=== PATIENT | male | born 1980 | race Caucasian/White ===

== ENCOUNTER 2021-01-03 16:07 | Emergency (ER) | payer OTHER ==
[2021-01-03 16:15] VITALS: BP 142/109
[2021-01-03 16:34] LABS: BASOPHILS % (AUTO) 0.4 %; EOSINOPHILS # (AUTO) 0.1 10^3/uL (0.0-0.7); EOSINOPHILS % (AUTO) 1.2 %; HCT - HEMATOCRIT 45.2 % (42.0-52.0); HGB - HEMOGLOBIN 15.1 g/dL (14.0-18.0); LYMPHOCYTES # (AUTO) 2.7 10^3/uL (1.5-3.5); LYMPHOCYTES % (AUTO) 34.8 %; MEAN CORPUSCULAR HEMOGLOBIN 30.8 pg (27.0-31.0); MEAN CORPUSCULAR HGB CONC 33.4 g/dL (32.0-36.0); MEAN CORPUSCULAR VOLUME 92.1 fL (80.0-94.0); MEAN PLATELET VOLUME 9.4 fL (7.4-11.4); MONOCYTES # (AUTO) 0.6 10^3/uL (0.0-1.0); MONOCYTES % (AUTO) 7.2 %; NEUTROPHILS # (AUTO) 4.4 10^3/uL (1.5-6.6); NEUTROPHILS % (AUTO) 56.1 %; PLT - PLATELET COUNT 232 10^3/uL (130-450); RED BLOOD COUNT 4.91 10^6/uL (4.70-6.10); WHITE BLOOD COUNT 7.8 x10^3/uL (4.8-10.8)
[2021-01-03 16:38] LABS: BILIRUBIN,URINE NEGATIVE (NEGATIVE); CLARITY,URINE CLEAR (CLEAR); GLUCOSE, URINE (UA) NEGATIVE (NEGATIVE); KETONES,URINE (UA) NEGATIVE (NEGATIVE); LEUKOCYTE ESTERASE, URINE NEGATIVE (NEGATIVE); NITRITE,URINE NEGATIVE (NEGATIVE); OCCULT BLOOD,URINE SMALL (NEGATIVE); PH,URINE 5.5 PH (5.0-7.5); PROTEIN,URINE NEGATIVE (NEGATIVE); UROBILINOGEN,URINE 0.2 (NORMAL) E.U./dL (NORMAL)
[2021-01-03 16:49] LABS: BACTERIA,URINE None Seen /HPF (None Seen); MUCUS,URINE Moderate Strands; RBC,URINE 0-5 /HPF (0-5); SQUAMOUS EPITHELIAL CELL,UR NONE SEEN (<= Few); WBC,URINE 0-3 /HPF (0-3)
[2021-01-03 16:49] LABS: ALBUMIN 5.1 g/dL (3.2-5.5); ALBUMIN/GLOBULIN RATIO 1.4 (1.0-2.2); BILIRUBIN,TOTAL 0.8 mg/dL (0.2-1.0); CALCIUM 9.6 mg/dL (8.5-10.3); CREATININE 0.8 mg/dL (0.6-1.2); POTASSIUM 3.9 mmol/L (3.5-5.0); TOTAL PROTEIN 8.8 g/dL (6.7-8.2)
--- NOTE | 2021-01-03 17:01 | ED Physician Documentation ---
PD HPI ABD PAIN - Stated complaint Stated Complaint: LT SIDE ABD PX - Chief complaint Chief Complaint: Abd Pain - History obtained from History obtained from: Patient - History of Present Illness Timing - onset: Last night Pain level max: 7 Pain level now: 6 Quality: Aching, Sharp, Pain Radiation: No: Chest, , Lower back, Left flank, Left shoulder, Right flank, Right shoulder, Upper back Associated symptoms: No: Fever, Nausea, Vomiting, Hematemesis, Diarrhea, Constipation, Melena, Hematochezia, Dysuria, Hematuria - Additional information Additional information: Patient is a 40-year-old male who presents to the emergency department left- sided abdominal pain since last night. [facility] for evaluation. Worse with palpation and movement. Nothing makes it better. Described as aching and sharp. Nonradiating. Does not recall any trauma. No recent illnesses. Review of Systems Ten Systems: 10 systems reviewed and negative Constitutional: denies: Fever, Chills Throat: denies: Sore throat Cardiac: denies: Chest pain / pressure Respiratory: denies: Cough GI: denies: Vomiting, Diarrhea, Hematemesis, Bloody / black stool Skin: denies: Rash Musculoskeletal: denies: Neck pain, Back pain Neurologic: denies: Headache PD PAST MEDICAL HISTORY - Past Medical History Past Medical History: No - Past Surgical History Past Surgical History: No - Present Medications Home Medications: Ambulatory Orders Medication Instructions Recorded Confirmed Amox/Clav 875/125 [Augmentin] 1 each PO Q8H #30 tablet 01/03/21 - Allergies Allergies/Adverse Reactions: Allergies Allergy/AdvReac Type Severity Reaction Status Date / Time No Known Drug Allergies Allergy Verified 01/03/21 16:11 - Living Situation Living Arrangement: reports: At home - Social History Does the pt smoke?: No Smoking Status: Never smoker PD ED PE NORMAL - Vitals Vital signs reviewed: Yes - General General: Alert and oriented X 3, No acute distress, Well developed/nourished - HEENT HEENT: Moist mucous membranes - Neck Neck: Supple, no meningeal sign - Cardiac Cardiac: RRR - Respiratory Respiratory: No respiratory distress, Clear bilaterally - Abdomen Abdomen: Soft, Non distended, Other (Tender palpation left lower quadrant. No peritoneal signs.) - Back Back: No CVA TTP - Derm Derm: Warm and dry - Extremities Extremities: No edema - Neuro Neuro: Alert and oriented X 3 - Psych Psych: Normal mood, Normal affect Results - Vitals Vitals: Vital Signs - 24 hr 01/03/21 16:11 Temperature 36.8 C Heart Rate 82 Respiratory 20 Rate Blood Pressure 142/109 H O2 Saturation 97 Oxygen O2 Source Room air - Labs Labs: Laboratory Tests 01/03/21 01/03/21 01/03/21 16:23 16:27 16:27 WBC 7.8 RBC 4.91 Hgb 15.1 Hct 45.2 MCV 92.1 MCH 30.8 MCHC 33.4 RDW 12.0 Plt Count 232 MPV 9.4 Neut # (Auto) 4.4 Lymph # (Auto) 2.7 [place] # (Auto) 0.6 Eos # (Auto) 0.1 Baso # (Auto) 0.0 Absolute Nucleated RBC 0.00 Nucleated RBC % 0.0 Sodium 138 Potassium 3.9 Chloride 102 Carbon Dioxide 27 Anion Gap 9.0 BUN 14 Creatinine 0.8 Estimated GFR (MDRD) 108 Glucose 88 Calcium 9.6 Total Bilirubin 0.8 AST 20 ALT 30 Alkaline Phosphatase 64 Total Protein 8.8 H Albumin 5.1 Globulin 3.7 Albumin/Globulin Ratio 1.4 Lipase 38 Urine Color YELLOW Urine Clarity CLEAR Urine pH 5.5 Ur Specific [place] >=1.030 H Urine Protein NEGATIVE Urine Glucose (UA) NEGATIVE Urine Ketones NEGATIVE Urine Occult Blood SMALL H Urine Nitrite NEGATIVE Urine Bilirubin NEGATIVE Urine Urobilinogen 0.2 (NORMAL) Ur Leukocyte Esterase NEGATIVE Urine RBC 0-5 Urine WBC 0-3 Ur Squamous Epith Cells NONE SEEN Urine Bacteria None Seen Urine Mucus Moderate Strands Ur Microscopic Review INDICATED Urine Culture Comments NOT INDICATED - Rads (name of study) CT abdomen pelvis Radiology: Final report received, EMP read contemporaneously, See rad report PD MEDICAL DECISION MAKING - ED course Complexity details: reviewed results, re-evaluated patient, considered differential, d/w patient ED course: 40-year-old male presents to the emergency department with what appears to be diverticulitis versus colitis. Will place on antibiotics and have him follow-up closely with his doctor for further care. Patient is well-appearing, nontoxic. Afebrile. Discussed risks and benefits of antibiotics versus watchful waiting, including the possibility of C. difficile. Patient has elected antibiotics. Patient counseled regarding signs and symptoms for which I believe and urgent re-evaluation would be necessary. Patient with good understanding of and agreement to plan and is comfortable going home at this time This document was made in part using voice recognition software. While efforts are made to proofread this document, sound alike and grammatical errors may occur. IMPRESSION: Mild fatty stranding and wall thickening can be seen involving the descending colon. Please correlate with potential infectious and inflammatory causes of colitis. No findings of perforation or abscess can be seen. There is a moderate amount of stool seen within the distal colon. Please correlate with clinical constipation. Departure - Departure Disposition: 01 Home, Self Care Clinical Impression: Colitis Condition: Good Instructions: ED Diverticulitis Follow-Up: JESSIE RESTREPO DO [Primary Care Provider] - Within 1 week Prescriptions: Amox/Clav 875/125 [Augmentin] 1 each PO Q8H #30 tablet Comments: Your prescriptions were sent to the [facility]. Please follow-up with your doctor for further care. Return for worsening pain, fevers or worsening symptoms. You should notice improvement within approximately 36 to 48 hours. Take all antibiotics until gone even if you are feeling better. Discharge Date/Time: 01/03/21 18:10
[2021-01-03] MEDS ORDERED: IOVERSOL 320 100 ML VIAL IVP ONE ×2 (17:09→17:33)
--- NOTE | 2021-01-03 17:43 | CT Report ---
PROCEDURE: Abdomen/Pelvis W INDICATIONS: LLQ abd pain CONTRAST: IV CONTRAST: Optiray 320 ml: 100 PO CONTRAST: *NO PO CONTRAST TECHNIQUE: After the administration of IV contrast, 5 mm thick sections acquired from the diaphragms to the symp hysis. 5 mm thick coronal and sagittal reformats were acquired. For radiation dose reduction, the f ollowing was used: automated exposure control, adjustment of mA and/or kV according to patient size. COMPARISON: None. FINDINGS: Image quality: Excellent. ABDOMEN: Lung bases: Lung bases are clear. Heart size is normal. A small hiatal hernia is incidentally note d. Solid organs: Liver and spleen are normal in size and enhancement. Diffuse fatty liver infiltration can be seen. Gallbladder wall does not appear thickened. Biliary system is non dilated. Pancre as enhances normally. No adrenal nodules. Kidneys demonstrate normal size and enhancement, without hydronephrosis. Peritoneum and bowel: In this patient with this given history, scrutiny is given to left lower quadr ant. Mild fatty straining can be seen involving the descending colon, with mild wall thickening. Ther e is a moderate amount of stool seen within the distal colon. No findings of abscess can be seen. No free fluid or air. Bowel loops otherwise demonstrate normal wall thickness and caliber. A normal appendix can be seen. Nodes and vessels: No retroperitoneal or mesenteric adenopathy by size criteria. Aorta and inferior vena cava are normal in size. Miscellaneous: No ventral hernias. PELVIS: Genitourinary: Bladder wall thickness is normal. Miscellaneous: No inguinal hernias or adenopathy. Bones: No suspicious bony lesions. No vertebral body compression fractures. Focal L5-S1 degenerati ve change is seen. IMPRESSION: Mild fatty stranding and wall thickening can be seen involving the descending colon. Ple ase correlate with potential infectious and inflammatory causes of colitis. No findings of perforation or abscess can be seen. There is a moderate amount of stool seen within the distal colon. Please correlate with clinical cons tipation. Incidental note is made of: Small hiatal hernia Fatty liver infiltration Normal appendix Focal L5-S1 degenerative change Reviewed by: Yehuda Longoria MD on 01/03/2021 4:41 PM AKDT Approved by: Yehuda Longoria MD on 01/03/2021 4:41 PM AKDT Station ID: [id number]
[2021-01-03] MEDS ORDERED: AMOX/CLAV 875 MG/125 MG TABLET PO STA (17:45)
== END 2021-01-03 18:10 | disposition home or self-care (01) ==
LOC: ED 16:07
DX: K52.9 Noninfective gastroenteritis and colitis, unspecified (principal)
CPT/HCPCS: 36415; 74177; 80053; 81001; 83690; 85025; 99284; A9270; Q9967; 81003; 87086

== ENCOUNTER 2021-12-19 09:24 | Outpatient (CLI) | payer OTHER ==
[2021-12-19 10:07] VITALS: BP 118/76
--- NOTE | 2021-12-19 10:07 | SLEEP CARE CONSULTATION ---
Information from patient questionnaire entered by Sonia Blackman. I have reviewed and concur with the information entered by Sonia Blackman. This document represents the service I personally performed and the decisions made by me, Charline Jonas ARNP. History of Present Illness Service Date and Time: 12/19/2021 0924 Reason for Visit: New patient Chief Complaint: reports: Snoring, Excessive daytime sleepiness, Fatigue, Frequent awakenings at night Date of Onset: 10 years Usual bedtime: 2200 Time it takes to fall asleep: 10 minutes to 2 hours Snores at night: Yes Observed to quit breathing while asleep: No Sleeps alone due to snoring: No Number of times waking at night: 5-6 Reasons for waking at night: reports: Other (unknown reasons; coughing). denies: Choking, Snoring, Gasping for air Toss, Turn, or Twitch while sleeping: Yes Recalls having dreams: Yes Usually gets out of bed at: 0316-8903 Feels refreshed in the morning: No Morning headache: No Sleepy or fatigued during the day: Yes Ever fallen asleep while driving: Yes (drowsy driving; no accidents) Takes day naps: No Dreams during day naps: No Prior sleep studies: No Additional HPI information: I had the pleasure of seeing NABIL MILLER today regarding the possibility of him having a sleep disorder. His current complaints are snoring, excessive daytime sleepiness, fatigue and frequent night awakenings. He is here because his is complaining of his snoring. He is sleepy and fatigued during the day. He will doze off at his desk at work. - Parasomnia Symptoms Walks in sleep: No Talks in sleep: No (not sure, no one has ever told him that he does) Ever acted out dreams in sleep: No Ever felt weak in the knees when startled or emotional: No Bothered by creepy, crawly, restless sensations in legs: No Problems with memory or concentration: Yes (both) Subjective Initial [place] Sleepiness Scale score: 15 (12/2021) Past Medical History Past Medical History: reports: GERD Social History The patient's occupation is a AM. Patient is and lives in . Have you smoked in the past 12 months: No Cigarettes per day (20/pack): 20 Years of smokin Quit date: 2005 Smoking Pack Years: 6.0 Alcohol use: Yes Alcohol amount and frequency: 1-2 drinks twice a month Caffeine use: Yes Caffeine amount and frequency: 2 cups coffee per day Family History Family history of sleep disordered breathing: Yes Family Hx Sleep Apnea: Mother: Snoring, Sleep apnea - Treated, Grandparent: Snoring Allergies and Home Medications Drug allergies reviewed: Yes (NKDA) Home medication list reviewed: Yes Allergy and home medication list: Allergies No known allergies - verified 12-19-2021 by FAITH CONSTANTINO Medications: Omeprazole 20 mg daily Review of Systems Weight gain over past 5 years: 25 Gastrointestinal: reports: heartburn, abdominal pain Ear/Nose/Throat: reports: dry mouth/throat (wake up occasionally ), wisdom teeth removed. denies: tonsillectomy Endocrine: reports: sluggishness Musculoskeletal: reports: back pain Immunologic: denies: allergies to food or environment Physical Exam Vital signs obtained and entered by: SONIA Chávez MA Blood Pressure: 118/76 (left arm) Cuff size: regular Heart Rate: 87 O2 Saturation: 98 Height: 5 ft 8 in Weight: 214 lb (with clothes/shoes) Body Mass Index: 32.5 BMI Classification: Obese Neck circumference: 20.5 Mouth and throat: narrow oropharynx Soft palate: long Hard palate: normal Uvula: long, edematous Uvula visualization: 50% Mallampati Class II Tongue: enlarged in size with teeth parry on lateral edges Tonsils: small Neck: normal w/o lymphadenopathy or thyromegaly Heart: regular rate and rhythm Lungs: clear bilaterally Impression and Plan 1. Suspected Obstructive Sleep Apnea-Hypopnea Syndrome, as suggested by a history of loud and irregular snoring, frequent awakening during the night, unrefreshed sleep, cognitive impairment, and excessive daytime sleepiness. Narrow oropharynx and obesity are common predisposing factors for obstructive sleep apnea-hypopnea syndrome. I recommend proceeding to polysomnography to confirm the diagnosis and to assess severity. If the patient has significant sleep disordered breathing, a manual CPAP titration study will also be performed to find the optimal treatment pressure. I informed the patient of what the sleep studies involve and after some discussion, obtained agreement to proceed. The pathophysiology of obstructive sleep apnea-hypopnea syndrome was discussed with the patient and health risks of cardiovascular and cerebrovascular disease if not treated. Risks of drowsy driving discussed in detail and patient advised to avoid long distance driving and to nail puller at the first sign of drowsiness. Patient agreed to plan. * Schedule polysomnography * Avoid long distance driving or driving when feeling sleepy. * Avoid alcohol, sedative and muscle relaxant around bedtime. * Attempt to lose weight. * Review instructions provided by trained office staff on how to prepare for the sleep study. * Return for follow-up after sleep study completed. Counseling Topics: Weight loss health impact Visit Type: In Office Time Spent with Patient (minutes): 30 Provider Statement: I spent 100% of the Face to Face Visit with the patient with greater than 50% spent counseling the patient and coordination of care.
== END 2021-12-19 09:25 | disposition home or self-care (01) ==
LOC: SC 09:24
PROVIDERS: ATTEND Nurse Practitioner Family
DX: R06.83 Snoring (principal); G47.8 Other sleep disorders; G47.10 Hypersomnia, unspecified; R53.83 Other fatigue; E66.9 Obesity, unspecified; Z68.32 Body mass index [BMI] 32.0-32.9, adult; Z87.891 Personal history of nicotine dependence
CPT/HCPCS: 99203; 99212

== ENCOUNTER 2022-01-15 19:11 | Outpatient (CLI) | payer OTHER | END 2022-01-15 19:12 | disposition home or self-care (01) | LOC: SC 19:11 | PROVIDERS: ATTEND Nurse Practitioner Family | DX: R06.83 Snoring (principal); G47.8 Other sleep disorders; G47.10 Hypersomnia, unspecified; R53.83 Other fatigue | CPT/HCPCS: 95810 ==

== ENCOUNTER 2022-02-07 09:41 | Outpatient (CLI) | payer OTHER ==
[2022-02-07 09:56] VITALS: BP 132/90
--- NOTE | 2022-02-07 09:56 | SLEEP CARE CONSULTATION ---
Information from patient questionnaire entered by Sonia Blackman. I have reviewed and concur with the information entered by Sonia Blackman. This document represents the service I personally performed and the decisions made by , Charline Jonas ARNP. History of Present Illness Service Date and Time: 02/07/2022 0941 Initial [place] Sleepiness Scale score: 15 (12/2021) Current [place] Sleepiness Scale score: 15 (02/07/2022) Additional HPI information: NABIL MILLER returns for follow up and results of the recently performed polysomnography. The patient was informed of the following findings: No significant sleep disordered breathing with an average AHI of 0.8 and jayson oxygen saturation of 92%. I explained the pathophysiology behind obstructive sleep apnea. Patient does not have sleep apnea and was advised how weight gain could increase the risk of developing sleep apnea in the future. I strongly encouraged the patient to lose weight. Patient has mild snoring. Snoring can be reduced by weight loss. Weight loss is best achieved with diet consult. Patient instructed to contact PCP for referral. Snoring can also be treated with an oral appliance from a dentist. Advised to check insurance coverage. In addition, an ENT evaluation can be do to see if other treatment is indicated. Patient counseled not drink alcohol less than 4 hours before bedtime as it can increase snoring and apnea. Patient was cautioned about risks of drowsy driving until sleepiness symptoms resolve. Sleep Study - Results Type of Sleep Study: Polysomnography (COMPLETED 01/15/2022) Prior sleep studies: No Polysomnography/Home Sleep Study results: IMPRESSION: The quality of the study is good. The patient had reduced sleep efficiency due to frequent awakenings throughout the night. The sleep architecture was abnormal for sleep fragmentation and reduced amount of time spent in REM and slow wave sleep (N3). Respiratory monitoring showed no significant sleep disordered breathing (AHI = 0.8) associated or hypoxia (jayson oxygen saturation of 92%). The patient slept adequately in supine position (supine AHI = 1.5; non-supine = 0.00). Snore was light in intensity. There was no significant periodic leg movement of sleep. Cardiac rhythm was normal sinus rhythm without significant arrhythmia. No abnormal behavior (parasomnia) observed during the night. Allergies and Home Medications Drug allergies reviewed: Yes (NKDA) Home medication list reviewed: Yes (no changes) Review of Systems Review of systems same as previous: Yes (no changes) Physical Exam Vital signs obtained and entered by: SONIA Chávez MA Blood Pressure: 132/90 (LEFT ARM) Cuff size: regular Heart Rate: 117 O2 Saturation: 96 Height: 5 ft 8 in Weight: 211 lb 3.2 oz Body Mass Index: 32.1 BMI Classification: Obese Impression and Plan Snoring but no significant sleep disordered breathing. Patient advised that often weight loss will reduce snoring as well as apnea risk. An oral appliance can also be used for snoring. This would require a dental consultation. Patient cautioned not to use other online appliances as can cause bite issues. A list of accredited dentists in [facility] and one local dentist who makes oral appliances is availble in our office. Patient is advised to check if insurance will cover. An ENT consult can also be helpful to determine if any other treatment is an option. * Attempt to lose weight * Avoid alcohol consumption near bedtime * The patient is cautioned about driving until sleepiness is completely resolved. * Return as needed for follow up. Counseling Topics: Weight loss health impact Visit Type: In Office Time Spent with Patient (minutes): 10 Provider Statement: I spent 100% of the Face to Face Visit with the patient with greater than 50% spent counseling the patient and coordination of care.
== END 2022-02-07 09:42 | disposition home or self-care (01) ==
LOC: SC 09:41
PROVIDERS: ATTEND Nurse Practitioner Family
DX: R06.83 Snoring (principal); E66.9 Obesity, unspecified; Z68.32 Body mass index [BMI] 32.0-32.9, adult
CPT/HCPCS: 99212

== ENCOUNTER 2022-08-14 09:22 | Outpatient (CLI) | payer OTHER ==
--- NOTE | 2022-08-14 17:40 | MRI Report ---
PROCEDURE: LUMBAR SPINE WO INDICATIONS: LOW BACK PAIN TECHNIQUE: Noncontrast sagittal T1 spin echo and T2 fast echo, sagittal STIR, axial T1 and T2 fast spin echo thr ough the lumbar spine. In cases with scoliosis, additional coronal T2 fast spin echo may be performe d. COMPARISON: None. FINDINGS: Image quality: Excellent. Alignment and Curvature: There is normal bony alignment. Bone Marrow: Marrow is of normal overall signal. No acute vertebral body compression fractures. Spinal Cord: Conus medullaris terminates at the L1-L2 level. Visualized cord demonstrates normal si gnal and size. Paraspinous Soft Tissues: No paravertebral masses. T12-L1: Normal in appearance. L1-L2: Normal in appearance. L2-L3: Very minimal disc bulge. Facet hypertrophy. Borderline canal stenosis. No significant aminah inal stenosis. L3-L4: Disc bulge. Facet hypertrophy. Mild canal stenosis. No significant foraminal stenosis. L4-L5: Disc bulge. Facet hypertrophy. Mild canal stenosis. Mild bilateral foraminal stenosis. L5-S1: There is chronic disc height loss. There is a moderate central posterior disc protrusion whi ch somewhat impinges on the right S1 nerve root in the right lateral recess and abuts the left S1 ner ve root in the left lateral recess. There is moderate canal stenosis. There is mild right foraminal s tenosis. IMPRESSION: 1. A moderate central posterior disc protrusion at L5-S1 results in moderate canal stenosis. There is a degree of impingement on the right S1 nerve root in the right lateral recess. 2. Multilevel facet arthropathy. 3. Mild canal stenosis at L3-L4 and L4-L5. Reviewed by: Theo Villalpando MD on 08/14/2022 5:39 PM PDT Approved by: Theo Villalpando MD on 08/14/2022 5:39 PM PDT Station ID: [id number]
== END 2022-08-14 09:23 | disposition home or self-care (01) ==
LOC: DI 09:22
PROVIDERS: ATTEND Preventive Medicine Aerospace Medicine
DX: M51.27 Other intervertebral disc displacement, lumbosacral region (principal); M47.816 Spondylosis without myelopathy or radiculopathy, lumbar region; M48.061 Spinal stenosis, lumbar region without neurogenic claudication; M48.07 Spinal stenosis, lumbosacral region